=== PATIENT | male | born 1965 | race Two or more races ===

== ENCOUNTER 2019-04-16 07:48 | Emergency (ER) | payer SELFPAY ==
[2019-04-16 07:53] VITALS: BP 168/100
--- NOTE | 2019-04-16 08:19 | ER Document Report ---
ED General - General Chief Complaint: Toothache Stated Complaint: TOOTH PAIN Time Seen by Provider: 04/16/19 08:12 Notes: 53-year-old male comes in complaining of right upper tooth pain. States he has had problem with his teeth for a long time. Describes them as aching. He does not want to go to the dentist. States his teeth are rotted off at the gum he is requesting antibiotics describes the pain is aching and throbbing he states rates it as severe. Denies any fever chills denies any trouble swallowing. Denies any additional trauma. Denies chest pain denies shortness of breath denies abdominal pain. TRAVEL OUTSIDE OF THE [place] IN LAST 30 DAYS: No - Related Data Allergies/Adverse Reactions: No Known Allergies Allergy (Verified 04/16/19 07:49) Past Medical History - Social History Smoking Status: Current Every Day Smoker Chew tobacco use (# tins/day): No Frequency of alcohol use: Occasional Drug Abuse: Bath salts Family History: None Patient has suicidal ideation: No Patient has homicidal ideation: No Renal/ Medical History: Denies: Hx Peritoneal Dialysis Review of Systems - Review of Systems Constitutional: denies: Chills, Fever EENT: Dental problem Cardiovascular: denies: Chest pain Respiratory: denies: Short of breath Skin: denies: Rash Neurological/Psychological: denies: Headaches -: Yes All other systems reviewed and negative Physical Exam - Vital signs Vitals: Temp Pulse Resp BP Pulse Ox 97.9 F 88 18 168/100 H 95 04/16/19 07:51 04/16/19 07:51 04/16/19 07:51 04/16/19 07:51 04/16/19 07:51 - Notes Notes: GENERAL_APPEARANCE: well_nourished, alert, cooperative VITALS: reviewed, see vital signs table. HEAD: no_swelling\tenderness on the head. EYES: PERRL, EOMI, conjunctiva_clear. NOSE: no_nasal_discharge. MOUTH: Overall very poor dentition the right upper jaw has multiple teeth that are rotted off at the gum. No obvious abscess THROAT: no_tonsilar_inflammation, no_airway_obstruction. no_lymphadenopathy NECK: supple, no_neck_tenderness, (-)thyromegaly. SKIN: warm, dry, good_color, no_rash. MENTAL_STATUS: speech_clear, oriented_X_3, normal_affect, responds_appropriately to questions. Course - Re-evaluation Re-evalutation: 04/16/19 08:17 Patient has overall very poor dentition. We will place him on penicillin antibiotics some NSAIDs. The patient is strongly encouraged to follow-up with dentistry. There is no obvious abscess. No drooling no stridor no airway compromise. The patient is comfortable going home and following up 04/16/19 08:18 - Vital Signs Vital signs: Temp Pulse Resp BP Pulse Ox 97.9 F 88 18 168/100 H 95 04/16/19 07:51 04/16/19 07:51 04/16/19 07:51 04/16/19 07:51 04/16/19 07:51 Discharge - Discharge Clinical Impression: Dentalgia Condition: Good Disposition: HOME, SELF-CARE Instructions: Toothache ([facility]), [facility], Penicillin V K ([facility]) Prescriptions: Ibuprofen [Motrin 800 mg Tablet] 800 mg PO Q8H PRN #30 tab PRN Reason: Penicillin V Potassium [Penicillin Vk 500 mg Tablet] 500 mg PO BID #20 tablet
== END 2019-04-16 08:29 | disposition home or self-care (01) ==
LOC: ER 07:48
DX: K08.89 Other specified disorders of teeth and supporting structures (principal); F17.200 Nicotine dependence, unspecified, uncomplicated
CPT/HCPCS: 99282